=== PATIENT | female | born 1970 | race Caucasian/White ===

== ENCOUNTER 2016-12-21 17:15 | Emergency (ER) | payer OTHER ==
--- NOTE | ~2016-12-21 | CT102 ---
[facility] A Service of [facility] RADIOLOGY TEXT RESULTS PATIENT: CUCA MCKENNA LOCATION: CFTX : 72 UNIT #: [id number] AGE: [address]: HUMBERTO SALGADO APRN SEX: F ORDER DR: [id number] [facility] [address] [place], [place] [address] [id number] E MR#: [id number] #: [id number] NAME: CUCA MCKENNA : 1970 SEX: F STUDY DATE/TIME: 12/21/2016 19:37 UNIT: [facility] ROOM: STUDY DESCRIPTION: CT Orbits W Contrast Attending Physician: Humberto Salgado Aprn Ordering Physician: Ed Oscar Swift M.D. Primary Care Physician: Nelson Hooker Pa-C MEDICAL IMAGING REPORT This report is preliminary unless electronic signature is present EXAM CT orbits with contrast HISTORY Right eye and cheek infection x4 days. TECHNIQUE Axial images perform through the orbits following IV contrast. Multiplanar reconstructed images reviewed at a workstation. This CT exam was performed with one or more of the following radiation dose reduction techniques: Automatic exposure control, adjustment of mA and/or kV according to patient size, and iterative reconstruction. Examination demonstrates right periorbital soft tissue swelling and edema. The globe appears intact. The retroorbital soft tissues appear normal. The retroorbital fat appears normal. The extraocular muscles, optic nerves appear normal. No evidence of sinus disease. There is some enhancement of the soft tissues following IV contrast compatible with cellulitis, but no evidence of drainable fluid collection or abscess. Visualized brain parenchyma appears normal. There are a few mildly enlarged right parotid lymph nodes. IMPRESSION CT findings compatible with right periorbital cellulitis, no evidence of retroorbital extension, no evidence of abscess. Dictated by... Lori Hermosillo M.D. THIS IS AN ELECTRONICALLY VERIFIED REPORT Lori Hermosillo M.D. at 12/22/2016 2:46 PM JMS/psc [facility] A Service of [facility] RADIOLOGY TEXT RESULTS PATIENT: CUCA MCKENNA LOCATION: [facility] : 72 UNIT #: [id number] AGE: [address]: HUMBERTO SALGADO APRN SEX: F ORDER DR: TD: 12/21/2016 20:21 JOB #: [id number] MEDICAL IMAGING REPORT Page 1 of 1 COPY
[2016-12-21 18:50] LABS: BASOPHIL# 0.1 X10e3 (0-0.3); BASOPHIL% 0.6 % (0-2.5); EOSINOPHIL# 0.3 X10e3 (0-0.7); EOSINOPHIL% 2.9 % (0.0-7.0); HEMATOCRIT 40.4 % (35.0-45.0); HEMOGLOBIN 13.1 gm/dL (12.0-16.0); LYMPHOCYTE# 2.7 X10e3 (1.0-3.5); LYMPHOCYTE% 28.4 % (17.0-45.0); MEAN CELL VOLUME 86.3 FL (83-96); MEAN CORPUSCULAR HEMOGLOBIN 28.1 PG (28-34); MEAN CORPUSCULAR HGB CONC 32.6 g/dL (30-36); MEAN PLATELET VOLUME 7.9 FL (6.5-11.5); MONOCYTE# 0.6 X10e3 (0-1.0); MONOCYTE% 6.8 % (3.0-12.0); NEUTROPHIL# 5.8 X10e3 (1.5-7.1); NEUTROPHIL% 61.3 % (40-75); PLATELET COUNT 321 X10e3 (140-420); RED BLOOD COUNT 4.67 X10e (3.90-5.30); RED CELL DISTRIBUTION WIDTH 13.3 % (11.0-15.5); WHITE BLOOD COUNT 9.4 X10e3 (4.0-10.5)
[2016-12-21 18:54] LABS: DIFF IND NO
[2016-12-21 19:18] LABS: ALBUMIN SERUM 4.6 g/dL (3.5-5.0); BILIRUBIN,TOTAL 0.7 mg/dL (0.2-2.0); BUN/CREATININE RATIO 14.28; CALCIUM SERUM 9.7 mg/dL (8.4-10.2); CREATININE SERUM 0.7 mg/dL (0.6-1.4); GLOM FILT RATE Estimated 104.6 mL/min (>60); POTASSIUM 3.6 mmol/L (3.5-5.1); PROTEIN TOTAL SERUM 8.3 g/dL (6.0-8.3)
== END 2016-12-21 20:20 | disposition home or self-care (01) ==
LOC: CED 17:15 → CFTX 17:15
PROVIDERS: Nurse Practitioner
DX: L03.213 Periorbital cellulitis (principal); I10 Essential (primary) hypertension; Z90.710 Acquired absence of both cervix and uterus; Z88.2 Allergy status to sulfonamides; Z88.8 Allergy status to other drugs, medicaments and biological substances
CPT/HCPCS: 36415; 70481; 80053; 85025; 87070; 87077; 87186; 87205; 96365; 99284; Q9967